=== PATIENT | female | born 1950 | race Caucasian/White ===

== ENCOUNTER 2021-03-21 16:06 | Emergency (ER) | payer OTHER ==
[~2021-03-21] VITALS: Ht 152.4 cm; Wt 90.7 kg
[2021-03-21] MEDS ORDERED: WARF1TAB2 (16:37)
[2021-03-21] MEDS ORDERED: MORPHINE SULFATE 4 MG/1 ML DISP.SYRIN IV ONE (16:45)
[2021-03-21] MEDS ORDERED: ONDANSETRON 4 MG/2 ML VIAL IV ONE ×2 (16:45→20:45)
[2021-03-21 16:47] LABS: HEMATOCRIT 36.6 % (31.2-41.9); MEAN CORPUSCULAR HEMOGLOBIN 29.5 uug (24.7-32.8); MEAN CORPUSCULAR VOLUME 89.4 fL (75.5-95.3); PLATELET COUNT (AUTO) 171 K/uL (179-408)
[2021-03-21] MEDS ORDERED: ONDANSETRON 4 MG/2 ML VIAL ONE ×2 (16:47→21:05)
[2021-03-21] MEDS ORDERED: MORPHINE SULFATE 4 MG/1 ML DISP.SYRIN ONE (16:47)
[2021-03-21 16:53] LABS: CARBON DIOXIDE 26 mmol/L (21-32); CHLORIDE 99 mmol/L (98-107); CREATININE 1.9 mg/dL (0.6-1.3); GLUCOSE 218 mg/dL (74-106); POTASSIUM 4.1 mmol/L (3.5-5.1); UREA NITROGEN, BLOOD 40 mg/dL (7-18)
[2021-03-21 17:07] LABS: ALANINE AMINOTRANSFERASE 27 U/L (14-59); ALKALINE PHOSPHATASE 130 U/L (50-136); ASPARTATE AMINOTRANSFERASE 28 U/L (15-37); BILIRUBIN,DIRECT 0.2 mg/dL (0.0-0.2); BILIRUBIN,TOTAL 0.5 mg/dL (0.2-1.0); TOTAL PROTEIN, SERUM 7.9 g/dL (6.4-8.2)
--- NOTE | 2021-03-21 20:18 | NUR ---
pt a/o, pt at bedside. will obtain pain med from Dr Bolton
--- NOTE | 2021-03-21 20:27 | NUR ---
Dr Richter from [facility] is speaking to ER Dr. Ramsey.
[2021-03-21] MEDS ORDERED: HYDROMORPHONE 1 MG/1 ML DISP.SYRIN IV ONE (20:45)
[2021-03-21] MEDS ORDERED: HYDROMORPHONE 1 MG/1 ML DISP.SYRIN ONE (21:04)
--- NOTE | 2021-03-21 23:24 | NUR ---
spoke with Andrés at [facility] [place] at [phone]. he states pt will be moved to [facility] and we are still waiting on bed assignment.
--- NOTE | 2021-03-21 23:55 | NUR ---
received call from [facility] to go to room 411-3 number for report is [phone]. accepting md is Dr. Wright.
--- NOTE | 2021-03-22 00:55 | NUR ---
[facility] 117 here to take pt to [facility]. Report called to CJ at [facility] pt to go to room 411-3 phone number [phone].
== END 2021-03-22 01:12 | disposition short-term general hospital (02) ==
LOC: ER 16:09
DX: S72.091A Other fracture of head and neck of right femur, initial encounter for closed fracture (principal); I48.91 Unspecified atrial fibrillation; Z79.899 Other long term (current) drug therapy; Z20.822 Contact with and (suspected) exposure to COVID-19; W01.0XXA Fall on same level from slipping, tripping and stumbling without subsequent striking against object, initial encounter; Y93.89 Activity, other specified; Y92.89 Other specified places as the place of occurrence of the external cause; Y99.8 Other external cause status
CPT/HCPCS: 36415; 71045; 73502; 80048; 80076; 85025; 85730; 86850; 86900; 86901; 87426; 93005; 96374; 96375; 96376; 99285; J1170; J2270; J2405 ×2; A4663